=== PATIENT | male | born 1960 | race African-American/Black ===

== ENCOUNTER → 2023-05-16 | Outpatient (CLI) | payer OTHER ==
--- NOTE | 2023-05-18 08:56 | MM ---
Reason for Exam: Screening (asymptomatic). Tissue Density: The breast tissue is heterogeneously dense. This may lower the sensitivity of mammography. Findings: Analyzed By CAD. Focal asymmetry left breast middle to posterior depth best appreciated on CC view slightly medial posterior nipple line 7.3 cm from nipple measuring 15 x 15 mm. Social posterior nipple line on MLO view. Right breast: There is no suspicious group of microcalcifications or new suspicious mass in either breast. Overall Assessment: Incomplete: need additional imaging evaluation, BI-RAD 0 Management: Diagnostic Breast Ultrasound of the left breast. [facility] will attempt to contact patient to return for supplemental views and ultrasound if indicated. Patient should continue monthly self-breast exams. A clinical breast exam by your physician is recommended on an annual basis. This exam should not preclude additional follow-up of suspicious palpable abnormalities. Note on Ale scores and lifetime risk: 1. A Ale score greater than 3% is considered moderate risk. If this is the case, consider specialist referral to assess eligibility for a risk reducing agent. 2. If overall lifetime risk for the development of breast cancer is 20% or higher, the patient may qualify for future screening with alternating mammogram and breast MRI. Electronically signed and approved by: Marcell Smith M.D.
== END | disposition home or self-care (01) ==
LOC: RADMAMWWP 14:49 → MERGE 15:00
PROVIDERS: ATTEND Internal Medicine Pulmonary Disease
DX: Z12.31 Encounter for screening mammogram for malignant neoplasm of breast (principal)
CPT/HCPCS: 77063; 77067

== ENCOUNTER → 2023-05-20 | Outpatient (CLI) | payer OTHER ==
--- NOTE | 2023-05-20 14:34 | USB ---
Reason for Exam: Additional evaluation requested from abnormal screening. Technique: Method: Targeted. Prior Study Comparison: 10/24/2017 Right Diagnostic Mammogram, [facility]. 05/16/2023 Bilateral MG 3D screening mammo w/cad, [facility]. Findings: The lower section of the breast of the left breast, the axilla of the left breast and the retroareolar of the left breast were scanned. Targeted ultrasound shows a 1.7 x 0.6 x 1.0 cm lobulated hypoechoic mass at 4:00 position 7 cm distance from nipple believed to correspond to mammogram abnormality.. Overall Assessment: Suspicious, BI-RAD 4 Management: Ultrasound Core Biopsy of the left breast. Tissue sampling is advised. Results were given to the patient verbally at the time of exam. Electronically signed and approved by: Marcell Smith M.D.
== END | disposition home or self-care (01) ==
LOC: RADUSWWP 13:36
PROVIDERS: ATTEND Internal Medicine Pulmonary Disease
DX: R92.8 Other abnormal and inconclusive findings on diagnostic imaging of breast (principal)

== ENCOUNTER → 2023-06-01 | Day surgery (SDC) | payer OTHER ==
--- NOTE | 2023-06-01 10:18 | MM ---
Reason for Exam: Post Procedure Mammogram. Last screening mammogram was performed less than 1 month ago. Tissue Density: Left: The breast tissue is heterogeneously dense. This may lower the sensitivity of mammography. Overall Assessment: Post procedure mammogram for marker placement Management: Post Mammogram for Atif Placement Electronically signed and approved by: Kirby Espinoza DO
--- NOTE | 2023-06-06 08:22 | USB ---
Prior Study Comparison: 10/24/2017 Right Diagnostic Mammogram, [facility]. 05/16/2023 Bilateral MG 3D screening mammo w/cad, [facility]. Pathology Description: Location: 4 o'clock. Marker Left Behind. Needle Type: Mammotome Cores: 8 Skin Nicks: 1 Gauge: 13 The procedure of ultrasound guided core biopsy was explained to the patient. Benefits, alternatives, and risks were discussed. An informed consent was then obtained. The patient was placed in supine positioning for imaging and for the procedure. The overlying skin was prepped and draped in usual sterile fashion. Lidocaine buffered with bicarbonate was used as anesthetic into the skin and subcutaneous tissue up to area of concern in the left breast. A jackie was made with surgical scalpel. Under ultrasound guidance, a 12-gauge vacuum assisted biopsy gun device was used to obtain 8 core samples. Following this, a biopsy clip was left in lesion. The patient tolerated the procedure well without any immediate complication. The patient was kept in the radiology department for short stay after the procedure and then discharged home in stable condition. Postprocedure mammogram: The patient was transferred to mammography for physician ordered post procedure mammogram for clip placement verification. The clip appears to have migrated laterally along the tract of biopsy gun which was from lateral inferior to slightly superior. It is approximately 6.7 cm of clip migration. Impression: Successful, uncomplicated ultrasound guided core biopsy of area of concern in the left breast, full pathology results to follow. Pathology Results: Result: Benign, Fibroadenoma. LEFT BREAST, FOUR O'CLOCK, ULTRASOUND GUIDED NEEDLE CORE BIOPSY: Fibroadenoma. Overall Assessment: Benign Management: Diagnostic Mammogram of the left breast in 6 months. Electronically signed and approved by: Kirby Espinoza DO
== END ==
LOC: RADUSWWP 07:43
DX: D24.2 Benign neoplasm of left breast (principal)
CPT/HCPCS: 88305; 77065; 19083; A4648

== ENCOUNTER 2023-09-21 12:56 | Emergency (ER) | payer OTHER ==
[2023-09-21 13:26] VITALS: BP 163/63; PULSE 73; RESP 18; TEMP 98.2
--- NOTE | 2023-09-21 14:20 | ED ---
Recheck HPI - General Chief Complaint: Recheck/Abnormal Lab/Rx Stated Complaint: Med Refill Time Seen by Provider: 09/21/23 13:55 Source: patient, RN notes reviewed Mode of arrival: ambulatory Limitations: no limitations - History of Present Illness Initial Comments: A 62-year-old non-binary individual who presents to the emergency department for a medication refill. Patient had been following up with Dr. Sanchez, however due to a sanction on his license, her insurance will not cover the cost of medications refilled by him. She was subsequently advised to come to the emergency department by the pharmacy affairs assistant for medication refills. She is not sure which medications she is taking, and requested we call the pharmacist for that information. MD Complaint: medication refill request - Related Data Home Medications Medication Instructions Recorded Confirmed Cyanocobalamin [Vitamin B-12 1,000 mcg SQ Q30D 01/06/23 05/23/23 Injection] HYDROcodone/APAP 10-325MG [[place] 1 tab PO QID PRN 01/06/23 05/23/23 10-325] Previous Rx's Medication Instructions Recorded ALPRAZolam [Xanax] 0.5 mg PO BID #18 tablet 05/22/14 Estrogens, Conjugated [Premarin] 1.25 mg PO BID #20 tab 05/22/14 Ammonium Lactate Lotion 1 applic TOPICAL BID #225 ml 03/03/23 [Lac-Hydrin 12% Lotion] Spironolactone 100 mg PO BID #60 tab 03/03/23 estradioL 2 mg PO TID #90 tab 03/03/23 Estrogens, Conjugated [Premarin] 0.625 mg PO BID #30 tab 09/21/23 Loratadine [Claritin] 10 mg PO DAILY #30 tab 09/21/23 Medroxyprogesterone Acetate 5 mg PO DAILY #30 tablet 09/21/23 Pantoprazole [Protonix] 40 mg PO DAILY #30 tab 09/21/23 Allergies Allergy/AdvReac Type Severity Reaction Status Date / Time No Known Allergies Allergy Verified 09/21/23 13:01 Review of Systems ROS Statement: Those systems with pertinent positive or pertinent negative responses have been documented in the HPI. ROS Other: All systems not noted in ROS Statement are negative. Past Medical History Past Medical History: GERD/Reflux Additional Past Medical History / Comment(s): chronic back pain History of Any Multi-Drug Resistant Organisms: None Reported Past Surgical History: No Surgical Hx Reported Past Anesthesia/Blood Transfusion Reactions: No Reported Reaction Past Psychological History: Anxiety, Bipolar, Depression, PTSD, Schizoaffective Disorder Smoking Status: Current every day smoker Past Alcohol Use History: Rare Past Drug Use History: Marijuana General Exam Limitations: no limitations General appearance: alert, in no apparent distress Head exam: Present: atraumatic, normocephalic, normal inspection Respiratory exam: Present: normal lung sounds bilaterally. Absent: respiratory distress, wheezes, rales, rhonchi, stridor Cardiovascular Exam: Present: regular rate, normal rhythm, normal heart sounds. Absent: systolic murmur, diastolic murmur, rubs, gallop, clicks Neurological exam: Present: alert, oriented X3, CN II-XII intact Psychiatric exam: Present: normal affect, normal mood Skin exam: Present: warm, dry, intact, normal color. Absent: rash Course Vital Signs 09/21/23 09/21/23 12:57 14:36 Temperature 98.2 F Pulse Rate 73 Respiratory 18 18 Rate Blood Pressure 163/63 O2 Sat by Pulse 96 Oximetry Medical Decision Making - Medical Decision Making This is a 62-year-old non-binary individual who presents to the emergency department for medication refills. Was pt. sent in by a medical professional or institution? @ -No Did you speak to anyone other than the patient for history? @ -No Did you review nursing and triage notes? @ -Yes, and I agree, it is accurate with regards to the patient's symptoms. Were old charts reviewed? @ -No Differential Diagnosis? @ -Not applicable EKG interpreted by me (3pts min.)? @ -Not obtained X-rays interpreted by me (1pt min.)? @ -Not obtained CT interpreted by me (1pt min.)? @ -Not obtained U/S interpreted by me (1pt. min.)? @ -Not obtained What testing was considered but not performed? (CT, X-rays, U/S, labs)? Why? @ -None What meds were considered but not given? Why? @ -None Did you discuss the management of the patient with other professionals? @ -Yes, the pharmacist, who advised that the patient is taking Premarin, medroxyprogesterone, Claritin, and Pantoprazole. She had previously been on estradiol and spironolactone as well, but she does not believe that she had been taking those recently. Did you reconcile home meds? @ -No Was smoking cessation discussed for >3mins.? @ -No Was critical care preformed (if so, how long)? @ -No Were there social determinants of health that impacted care today? How? (Homelessness, low income, unemployed, alcoholism, drug addiction, transportation, low edu. Level, literacy, decrease access to med. care, senior living, rehab)? @ -No Was there de-escalation of care discussed even if they declined? (Discuss DNR or withdrawal of care, Hospice)? @ -No What co-morbidities impacted this encounter? (DM, HTN, Smoking, COPD, CAD, Cancer, CVA, Hep., AIDS, mental health diagnosis, sleep apnea, morbid obesity)? @ -GERD, menopausal symptoms Was patient admitted / discharged? @ -Discharged. Patient's Premarin, medroxyprogesterone, loratadine, and pantoprazole were refilled. Patient inquired about a refill on her [place], 10 mg. I advised that she has not had this in several weeks, and we are not going to refill that at this time. She was given a dose of [place] in the emergency department and subsequently discharge home. Patient is advised that she needs to become established with a primary care provider, as she cannot continue to rely on the emergency department for medication refills. She was provided with a list of local primary care providers to become established for ongoing medication management. Undiagnosed new problem with uncertain prognosis? @ -None Drug Therapy requiring intensive monitoring for toxicity (Heparin, Nitro, Insulin, Cardizem)? @ -None Were any procedures done? @ -None Diagnosis/symptom? @ -Encounter for medication refill Acute, or Chronic, or Acute on Chronic? @ -Acute Uncomplicated (without systemic symptoms) or Complicated (systemic symptoms)? @ -Uncomplicated Side effects of treatment? @ -None Exacerbation, Progression, or Severe Exacerbation] @ -Not applicable Poses a threat to life or bodily function? @ -No Return precautions reviewed in depth, the patient is instructed to return to the emergency department with any new, worsening, or concerning symptoms. Patient verbalized understanding. This case was discussed in detail with the attending ED physician, Dr. Harper. Presentation, findings, and treatment plan discussed in detail as well. Disposition Clinical Impression: Encounter for medication refill Disposition: HOME SELF-CARE Additional Instructions: Return to the emergency department with any new, worsening, or concerning sym ptoms. I provided you with a temporary refill on your medications. I also provided you with a list of local primary care providers. Please contact them to become established for ongoing medication management Prescriptions: Loratadine [Claritin] 10 mg PO DAILY #30 tab Medroxyprogesterone Acetate 5 mg PO DAILY #30 tablet Estrogens, Conjugated [Premarin] 0.625 mg PO BID #30 tab Pantoprazole [Protonix] 40 mg PO DAILY #30 tab Is patient prescribed a controlled substance at d/c from ED?: No Referrals: Jayce Sanchez MD [Primary Care Provider] - 1-2 days Forms: Area PCPs
[2023-09-21] MEDS ORDERED: HYDROcodone/APAP 10-325MG 1 EACH TAB PO ONE (14:28)
[2023-09-21] MEDS ORDERED: ACET/COD 300 MG/30 MG STARTER PACK 6 TAB BTL PO STA (14:28)
== END 2023-09-21 14:37 | disposition home or self-care (01) ==
LOC: EDSEX → EC 12:56
DX: Z76.0 Encounter for issue of repeat prescription (principal); F17.200 Nicotine dependence, unspecified, uncomplicated; F12.90 Cannabis use, unspecified, uncomplicated; Z86.59 Personal history of other mental and behavioral disorders
CPT/HCPCS: 99283

== ENCOUNTER → 2024-12-24 | Outpatient (CLI) | payer MEDICARE, OTHER ==
--- NOTE | 2024-12-24 13:31 | BD ---
EXAMINATION TYPE: Axial Bone Density DATE OF EXAM: 12/24/2024 CLINICAL HISTORY: 64 years old Female. ICD-10 CODE: Z79.3 MCFP use contraceptive , Additional H istory: Height: 68 Weight: 228.3 FRAX RISK QUESTIONS: Alcohol (3 or more units per day): no Family History (Parent hip fracture): no Glucocorticoids (More than 3mos): no (Ex: prednisone, prednisolone, methylprednisolone, dexamethasone, and hydrocortisone). History of Fracture in Adulthood: ankle, wrist, elbow Secondary Osteoporosis: 1. Type 1 Diabetes: no 2. Hyperthyroidism: no 3. Menopause before 45: no 4. Malnutrition: no 5. Chronic liver disease: no Rheumatoid Arthritis: no Current Tobacco Use: yes RISK FACTORS HISTORY OF: Hip Fracture (Right/Left): no Spine Fracture: no History of Wrist Fracture: RT Wrist When: age 23 Surgery to Spine/Hip(right/left)/Wrist (right/left): no MEDICATIONS: Thyroid Medications: no Osteoporosis Medications: no EXAM MEASUREMENTS: Bone mineral densitometry was performed using the [employer] System. Bone mineral density as measured about the Lumbar spine is: ----- L1-L4(G/cm2): 1.614 T Score Values are as follows: ----- L1: 2.6 ----- L2: 2.7 ----- L3: 3.8 ----- L4: 4.8 ----- L1-L4: 3.6 Z Score Values are as follows: ----- L1: 2.4 ----- L2: 2.4 ----- L3: 3.5 ----- L4: 4.6 ----- L1-L4: 3.4 Baseline Study Bone mineral density about the R hip (g/cm2): 1.191 Bone mineral density about the L hip (g/cm2): 1.161 T Score values are as follows: -----R Neck: 0.5 -----L Neck: 0.5 -----R Total: 1.5 -----L Total: 1.2 Z Score values are as follows: -----R Neck: 0.4 -----L Neck: 0.4 -----R Total: 0.9 -----L Total: 0.7 Baseline Study FRAX%s: The graph provided illustrates a 4.1% chance for a major osteoporotic fx and a 0.2% chance fo r the hips probability for fx in 10 years time. IMPRESSION: Normal (Values between +1 and -1 indicate normal bone mass). Consider repeating this study in 5 year s or sooner if there is some new clinical indication. NOTE: T-SCORE=SD OF THE YOUNG ADULT MEAN. [facility], , 12/24/2024 1:29 PM
--- NOTE | 2024-12-24 13:31 | MM ---
Reason for Exam: Screening (asymptomatic). Last mammogram was performed 1 year(s) and 8 month(s) ago. Patient History: 06/01/2023, Benign US biopsy breast VAD LT on the left side. Risk Values: Ale 5 year model risk: 1.3%. NCI Lifetime model risk: 4.4%. Prior Study Comparison: 10/24/2017 Right Diagnostic Mammogram, [facility]. 05/16/2023 Bilateral MG 3D screening mammo w/cad, [facility]. 06/01/2023 Left MG diagnostic mammo LT wo CAD., [facility]. Tissue Density: The breasts are heterogeneously dense, which may obscure small masses. Findings: Analyzed By CAD. Stable 17 mm mass in the left breast middle depth. Stable small round circumscribed 6 mm mass anteriorly in the right breast. Occasional tiny benign-appearing calcification in the left breast is noted. There is no suspicious new group of microcalcifications or new suspicious mass in either breast. Overall Assessment: Benign, BI-RAD 2 Management: Screening Mammogram of both breasts in 1 year. . Patient should continue monthly self-breast exams. A clinical breast exam by your physician is recommended on an annual basis. This exam should not preclude additional follow-up of suspicious palpable abnormalities. Note on Ale scores and lifetime risk: 1. A Ale score greater than 3% is considered moderate risk. If this is the case, consider specialist referral to assess eligibility for a risk reducing agent. 2. If overall lifetime risk for the development of breast cancer is 20% or higher, the patient may qualify for future screening with alternating mammogram and breast MRI. [facility], , 12/24/2024 1:28 PM. Electronically signed and approved by: Marcell Smith M.D.
[2024-12-24 19:39] LABS: Basophils # (A) 0.08 X 10*3/uL (0.00-0.10); Basophils % (A) 1.3 %; Eosinophils # (A) 0.08 X 10*3/uL (0.04-0.35); Eosinophils % (A) 1.3 %; HCT 38.3 % (37.2-46.3); Lymphocytes # (A) 2.82 X 10*3/uL (0.90-5.00); Lymphocytes % (A) 44.2 %; MCH 26.7 pg (27.0-32.0); MCHC 31.3 g/dL (32.0-37.0); MCV 85.1 FL (80.0-97.0); Mean Platelet Volume 11.2 FL (9.5-12.2); Monocytes # (A) 0.55 X 10*3/uL (0.20-1.00); Monocytes % (A) 8.6 %; NRBC Per 100 WBC 0 X 10*3/uL (0.00-0.01); Neutrophils # (A) 2.83 X 10*3/uL (1.80-7.70); Neutrophils % (A) 44.3 %; Platelet Count 222 X 10*3/uL (140-440); RDW 12.7 % (11.5-14.5); WBC 6.38 X 10*3/uL (4.50-10.00)
[2024-12-24 20:18] LABS: % Iron Saturation 20.65 (12.00-45.00); ALT 15 U/L (8-44); AST 21 U/L (13-35); Albumin 4.4 g/dL (3.8-4.9); Albumin/Globulin Ratio 1.69 Ratio (1.60-3.17); Alkaline Phosphatase 90 U/L (41-126); BUN/Creat Ratio 16.44 Ratio (12.00-20.00); Blood Urea Nitrogen 14.8 mg/dL (9.0-27.0); Calcium 9.2 mg/dL (8.7-10.3); Carbon Dioxide 23.6 mmol/L (21.6-31.8); Chloride 104 mmol/L (96-109); Chol/HDL Ratio 4.99 Ratio; Globulin 2.6 g/dL (1.6-3.3); Glucose 78 mg/dL (70-110); Iron 76 UG/DL (50-170); LDL Cholesterol,Calculated 134.7 mg/dL (0.0-131.0); Sodium 140 mmol/L (135-145); Total Bilirubin 0.3 mg/dL (0.3-1.2); Total Iron Binding Capacity 368 UG/DL (228-460)
== END | disposition home or self-care (01) ==
LOC: RADMAMWWP 12:18
PROVIDERS: ATTEND Family Medicine
DX: Z12.31 Encounter for screening mammogram for malignant neoplasm of breast (principal); R92.333 Mammographic heterogeneous density, bilateral breasts; M85.89 Other specified disorders of bone density and structure, multiple sites; F41.9 Anxiety disorder, unspecified; F45.8 Other somatoform disorders; R92.1 Mammographic calcification found on diagnostic imaging of breast; Z79.3 Long term (current) use of hormonal contraceptives
CPT/HCPCS: 77063; 77067; 77080; 80053; 80061; 82670; 83540; 83550; 84146; 84402; 84403; 84443; 85025